=== PATIENT | male | born 1985 | race Caucasian/White ===

== ENCOUNTER 2017-02-03 09:26 | Emergency (ER) | payer BC ==
--- NOTE | 2017-02-03 09:51 | ED Physician Documentation ---
Fall - HISTORIAN Historian: patient, parent - HPI Stated Complaint: Right hip pain Chief Complaint: Fall Additional Information: fell transferring fr w/chair w/rt hip pain Onset: minutes (30) Where: home Context: lost balance r: moderate Associated Symptoms:: no loss of consciousness Location of Pain/Injury: denies: head, neck, face, upper back, mid back Injury to Right Extremity: hip Injury to Left Extremity: none - ROS CONST: no problems CVS/RESP: none GI/: denies: problems urinating, nausea, vomiting - PAST HX Past History: other (fall w/ severe head injury--11 surgeries shunt peg tube) Allergies/Adverse Reactions: Allergies Allergy/AdvReac Type Severity Reaction Status Date / Time No Known Allergies Allergy Verified 02/03/17 09:41 Home Medications: Ambulatory Orders Medication Instructions Recorded Amantadine HCl [Amantadine] 100 mg PO D 06/30/13 Levetiracetam [Keppra] 500 mg PO BID 06/30/13 Omeprazole 40 mg PO D 06/30/13 Tizanidine HCl 6 mg PO TID 06/30/13 Warfarin Sodium [Coumadin] 5 mg PO [id number] 06/30/13 Chlorzoxazone [Parafon Forte Dsc] 500 mg PO QID #20 tablet 01/19/16 Testosterone [Androgel] 2 each TOP D 01/19/16 Warfarin Sodium [Warfarin Sodium] 1 tab PO [id number] 01/19/16 - SOCIAL HX Smoking History: non-smoker Alcohol Use: none Drug Use: none - FAMILY HX Family History: no significant history - VITAL SIGNS Vital Signs: Vital Signs Temp Pulse Resp BP Pulse Ox 98.2 F 98 H 16 139/91 95 02/03/17 09:41 02/03/17 09:41 02/03/17 09:41 02/03/17 09:41 02/03/17 09:41 - REVIEWED ASSESSMENTS Nursing Assessment Reviewed: Yes Vitals Reviewed: Yes ED Results Lab/Radiology - Radiology Radiology Impressions: no fracture rt hip Fall Physical Exam - Physical Exam General Appearance: mild distress, moderate distress Head: non-tender, no swelling, no obvious injury Neck: non-tender, painless ROM Eye: KAM, EOMI Resp/CVS: chest non-tender, no ecchymosis, breath sounds nml, no resp. distress , heart sounds nml, rib tenderness Abdomen: soft, non-tender Neuro: oriented x3, sensation nml, motor nml, mood/affect nml Skin: color nml, no rash. No: cyanosis, diaphoresis, pallor Back: normal inspection, no CVA tenderness, no vertebral tenderness - Parish Coma Score Eyes Open: Spontaneous Speech: Oriented Discharge Clincal Impression: fall contusion rt hip Home Medications: Ambulatory Orders Amantadine HCl [Amantadine] 100 mg PO D 06/30/13 Levetiracetam [Keppra] 500 mg PO BID 06/30/13 Omeprazole 40 mg PO D 06/30/13 Tizanidine HCl 6 mg PO TID 06/30/13 Warfarin Sodium [Coumadin] 5 mg PO [id number] 06/30/13 Chlorzoxazone [Parafon Forte Dsc] 500 mg PO QID #20 tablet 01/19/16 Testosterone [Androgel] 2 each TOP D 01/19/16 Warfarin Sodium [Warfarin Sodium] 1 tab PO [id number] 01/19/16 Comments: will call if any other damage-pt wantss to leave Condition: Good Disposition: 01 HOME, SELF-CARE Decision to Admit: NO Decision Time: 11:10
[2017-02-03 11:16] VITALS: BP 128/79
--- NOTE | 2017-02-03 13:57 | Diagnostic Imaging Report ---
[facility] [address] [facility].[address] [id number] Report Submission Date: Feb 03, 2017 11:09:03 AM CDT Patient Study Name: [facility] Date: Feb 03, 2017 10:12:21 AM CDT Modality Type: CR Gender: M Description: PELVIS : 89 Institution: [facility] Physician LESLEY ARIAS - PHILIP Pelvis and right hip CLINICAL HISTORY: Fall. Right hip pain. FINDINGS: Examination pelvis in single AP view fails to demonstrate evidence of fracture. Sacroiliac joints are symmetric. Femoral heads are normally seated in the acetabula. Examination of the right hip in AP and frog-leg lateral views fails to demonstrate evidence of fracture, dislocation or other bone or joint pathology. IMPRESSION: No fracture. Electronically signed on Feb 03, 2017 11:09:03 AM CDT by: Sudeep BLUNT
== END 2017-02-03 11:14 | disposition home or self-care (01) ==
LOC: ED 09:26
DX: S70.01XA Contusion of right hip, initial encounter (principal); W05.0XXA Fall from non-moving wheelchair, initial encounter; Y93.9 Activity, unspecified; Y99.9 Unspecified external cause status
CPT/HCPCS: 73502; 99283

== ENCOUNTER 2018-01-02 15:34 | Emergency (ER) | payer SELFPAY ==
--- NOTE | 2018-01-02 17:19 | ED Physician Documentation ---
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 Pt was mistakenly sent someone else's serum eyedrops and was using these for 2 or 3 days before his order picker/assembler noticed that the name on the eyedrop vials was not the pt's name. (The box containing the vials did have the pt's name on it.) Pt used 2 drops in his R eye 5x/day for 2 or 3 days. Pt has no sx as a result of this, but is concerned about possible blood bourne pathogen exposure. Pt's physician is Tiff Delgado MD of [facility]. 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 surgeries) Allergies/Adverse Reactions: Allergies Allergy/AdvReac Type Severity Reaction Status Date / Time No Known Allergies Allergy Verified 01/02/18 16:04 Home Medications: Ambulatory Orders Medication Instructions Recorded Amantadine HCl [Amantadine] 100 mg PO D 06/30/13 Levetiracetam [Keppra] 500 mg PO BID 06/30/13 Omeprazole 40 mg PO D 06/30/13 Tizanidine HCl 6 mg PO TID 06/30/13 Warfarin Sodium [Coumadin] 5 mg PO [id number] 06/30/13 Testosterone [Androgel] 2 each TOP D 01/19/16 Warfarin Sodium [Warfarin Sodium] 1 tab PO [id number] 01/19/16 Autologous Serum Eye Drops 01/02/18 - SOCIAL HX Smoking History: non-smoker - FAMILY HX Family History: No - VITAL SIGNS Vital Signs: Vital Signs Temp Pulse Resp BP Pulse Ox 97.5 F L 89 18 124/91 95 01/02/18 15:34 01/02/18 15:34 01/02/18 15:34 01/02/18 15:34 01/02/18 15:34 - REVIEWED ASSESSMENTS Nursing Assessment Reviewed: Yes Vitals Reviewed: Yes Progress - Progress Progress: Case d/w [facility]. Little increased risk of transmission based on type of exposure. Pt may be out of the window for tx as first exposure occurred days ago. Direct testing of eyedrop sample vials not likely to be helpful, given that serum is diluted as part of the autologous serum preparation. Labs for Hep B surface ag, Hep B ab titer, HCV ab, and HIV obtained from pt. f/u Dr. Tiff Delgado MD, [facility]. ED Results Lab/Radiology - Orders Orders: ED Orders Category Date Time Status HEPATITIS B SURFACE AB,QUANT Stat Lab 01/02/18 17:00 Received HEPATITIS B SURFACE AG Stat Lab 01/02/18 17:00 Received HEPATITIS C ANTIBODY Stat Lab 01/02/18 17:00 Received HIV-1/2 COMBO AG/AB ERIC,REFLEX Stat Lab 01/02/18 17:00 Received General Adult Physical Exam - PHYSICAL EXAM GENERAL APPEARANCE: no distress NECK: supple RESPIRATORY: no resp distress CVS: reg rate & rhythm SKIN: warm/dry EXTREMITIES: other (pt with traumatic brain injury, wheelchair bound) NEURO: other (traumatic brain injury pt) Discharge Clincal Impression: possible blood bourne pathogen exposure Referrals: Primary Doctor,No [Primary Care Provider] - Condition: Stable Disposition: 01 HOME, SELF-CARE Decision to Admit: NO Decision Time: 17:29
[2018-01-02 17:24] VITALS: BP 126/88
== END 2018-01-02 17:15 | disposition home or self-care (01) ==
LOC: ED 15:34
DX: T75.89XA Other specified effects of external causes, initial encounter (principal); X58.XXXA Exposure to other specified factors, initial encounter; Y93.9 Activity, unspecified; Y92.9 Unspecified place or not applicable
CPT/HCPCS: 36415; 86703; 86706; 86803; 87340; 99283